=== PATIENT | female | born 1975 | race Caucasian/White ===

== ENCOUNTER 2016-10-30 07:30 | Inpatient (IN) | payer BC ==
[2016-10-27 11:44] LABS: CONDITION Y; DEFINITIVE SEE PRINTOUT; Hematocrit 42.3 % (36.0-46.0); Hemoglobin 14.2 g/dL (12.2-16.2); Mean Corpuscular Hgb Conc. 33.5 g/dL (32.0-36.0); Mean Corpuscular Volume 86.6 fL (80.0-100.0); Mean Platelet Volume 8.3 fL (7.4-10.4); Platelet Count (auto) 301 10^3/uL (140-450); Red Cell Distribution Width 16.4 % (11.6-16.0); White Blood Cell 4.7 10^3/uL (4.4-10.8)
[2016-10-27 11:47] LABS: Metamyelocytes % 0; Myelocytes % 0; Promyelocytes % 0; Reactive Lymphocytes 0
[2016-10-27 11:49] LABS: Urine Bilirubin Negative (Negative); Urine Blood Negative /uL (Negative); Urine Color Yellow (Yellow); Urine Glucose Normal (Normal); Urine Ketone Negative (Negative); Urine Mucus FEW (None Seen); Urine Nitrite Negative (Negative); Urine RBC 1 /hpf (0 - 4); Urine Squamous Epithelial Cell FEW /hpf (<5); Urine Urobilinogen Normal (Negative); Urine pH 5.5 (5.0-8.0)
[2016-10-27 12:04] LABS: BUN/Creatinine Ratio 30.2; Calcium 8.8 mg/dL (8.5-10.1); Potassium 4.3 mmol/L (3.5-5.1)
[2016-10-27 12:07] LABS: INR 0.96 (0.9-1.15); Partial Thromboplastin Time 27.8 sec (22.64-33.71); Prothrombin Time 10.5 sec (9.37-12.3)
[2016-10-27 13:17] LABS: Platelet Estimate Adequate; RBC Morphology Normal
[~2016-10-30] VITALS: Ht 170.2 cm; Wt 110.7 kg
[~2016-10-30 07:30] MED LIST: THYR60TA PO
[2016-10-30] MEDS ORDERED: LIDOCAINE W/ EPINEPHRINE 1 % INJ 30ML ONE (07:45)
[2016-10-30] MEDS ORDERED: BUPIVACAINE 0.5% P/F INJ 10 ML VIAL ONE (07:45)
[2016-10-30] MEDS ORDERED: BUPIVACAINE 0.25% INJ 50ML VIAL ONE (07:46)
[2016-10-30] MEDS ORDERED: LIDOCAINE 1% HCL (LOCAL ANESTH.) INJ 20ML MDV ONE (07:47)
[2016-10-30] MEDS ORDERED: SUCCINYLCHOLINE CHLORIDE 20 MG/ML 10ML VIAL IV ONE (07:48)
[2016-10-30] MEDS ORDERED: METOCLOPRAMIDE HCL 5MG/ml INJ 2ml VIAL ONE (07:52)
[2016-10-30] MEDS ORDERED: KETOROLAC TROMETH 60MG/2ML VIAL IM ONE (07:52)
[2016-10-30] MEDS ORDERED: GLYCOPYRROLATE 0.2 MG/ML 1ML VIAL ONE (07:52)
[2016-10-30] MEDS ORDERED: SODIUM CHLORIDE LOCK 50 ML ONE (07:52)
[2016-10-30] MEDS ORDERED: fentaNYL CITRATE 10 ML ONE (07:52)
[2016-10-30] MEDS ORDERED: MIDAZOLAM HCL 1MG/1ML-2 ML VIAL ONE (07:52)
[2016-10-30] MEDS ORDERED: ONDANSETRON HCL 4 MG/2 ML VIAL ONE (07:52)
[2016-10-30] MEDS ORDERED: NEOSTIGMINE 1 MG/ML INJ (10mg/10ML VIAL) ONE (07:52)
[2016-10-30] MEDS ORDERED: MEPERIDINE HCL (50 MG/ML) 1 ML VIAL ONE (07:52)
[2016-10-30] MEDS ORDERED: PROPOFOL 10 MG/ML 20 ML IV ONE (07:53)
[2016-10-30] MEDS ORDERED: ROCURONIUM 10MG/ML 10ML VIAL IV ONE (07:53)
[2016-10-30] MEDS ORDERED: ceFAZolin 1GM/50ML D5W 50 ML IV ONE ×2 (08:14→09:00)
[2016-10-30] MEDS: LACTATED RINGER'S 1,000 ML IV SCH ×3 (08:51→22:29)
[2016-10-30] MEDS ORDERED: LIDOCAINE HCL (LOCAL ANESTH.) 0.5 % 50ML MDV IJ ONE (08:59)
[2016-10-30] MEDS ORDERED: NITROGLYCERIN 0.4 MG SL TAB SL PRN (09:00)
[2016-10-30] MEDS ORDERED: MORPHINE SULF INJ 2 MG/ML SYRINGE 1ML IV PRN (09:00)
[2016-10-30] MEDS ORDERED: METOCLOPRAMIDE HCL 5MG/ml INJ 2ml VIAL IV ONE (10:45)
[2016-10-30] MEDS ORDERED: HYDROmorphone HCL 2 MG/ML VL IV PRN (10:45)
[2016-10-30] MEDS ORDERED: KETOROLAC TROMETH 30 MG/ML 1ML VIAL IV ONE (10:45)
[2016-10-30] MEDS: ONDANSETRON HCL 4 MG/2 ML VIAL IV PRN ×3 (10:54→18:45)
[2016-10-30 14:31] VITALS: BP 95/63
[2016-10-30 16:15] VITALS: BP 91/61
[2016-10-30] MEDS: MORPHINE SULF INJ 2 MG/ML SYRINGE 1ML IV PRN (17:14)
[2016-10-30 22:00] VITALS: BP 97/62
[2016-10-30] MEDS: ACETAMINOPHEN 500 MG TAB PO PRN (22:29)
[2016-10-31] MEDS ORDERED: SODIUM CHLORIDE 0.9% 500 ML IV ONE (00:45)
[2016-10-31 05:00] VITALS: BP 95/61
[2016-10-31] MEDS: LACTATED RINGER'S 1,000 ML IV SCH ×2 (05:19→10:09)
[2016-10-31 06:33] LABS: Basophils # (auto) 0 uL; Basophils % (auto) 0.2 % (0.0-2.0); CONDITION Y; Eosinophils # (auto) 0 uL; Hematocrit 34.2 % (36.0-46.0); Hemoglobin 11.6 g/dL (12.2-16.2); Lymphocytes # (auto) 0.8 uL; Lymphocytes % (auto) 9.2 % (10.0-50.0); Mean Corpuscular Hemoglobin 29.2 pg (28.0-32.0); Mean Corpuscular Volume 85.6 fL (80.0-100.0); Mean Platelet Volume 8.1 fL (7.4-10.4); Monocytes # (auto) 0.7 uL; Monocytes % (auto) 8.4 % (0.0-12.0); Neutrophils # (auto) 6.8 uL; Neutrophils % (auto) 82.2 % (37.0-80.0); Platelet Count (auto) 273 10^3/uL (140-450); White Blood Cell 8.3 10^3/uL (4.4-10.8)
[2016-10-31] MEDS: ACETAMINOPHEN 500 MG TAB PO PRN (06:41)
[2016-10-31 07:39] VITALS: BP 94/58
[2016-10-31] MEDS: ONDANSETRON HCL 4 MG/2 ML VIAL IV PRN ×2 (10:33→16:44)
[2016-10-31] MEDS: MORPHINE SULF INJ 2 MG/ML SYRINGE 1ML IV PRN ×2 (10:33→16:43)
[2016-10-31 11:51] VITALS: BP 99/65
[2016-10-31 16:47] VITALS: BP 110/71
[2016-10-31 18:07] VITALS: BP 110/71
== END 2016-10-31 18:53 | disposition home or self-care (01) | DRG 743 ==
LOC: SUR 07:30 → TELE-E-ADS 07:31 → EAST 14:30
PROVIDERS: ADMIT Obstetrics & Gynecology; ATTEND Obstetrics & Gynecology
PROC: 0UT5FZZ Resection of Right Fallopian Tube, Via Natural or Artificial Opening With Percutaneous Endoscopic Assistance (ICD-10-PCS; 2016-10-30)
PROC: 8E0W4CZ Robotic Assisted Procedure of Trunk Region, Percutaneous Endoscopic Approach (ICD-10-PCS; 2016-10-30)
PROC: 0UT9FZZ Resection of Uterus, Via Natural or Artificial Opening With Percutaneous Endoscopic Assistance (ICD-10-PCS; principal; 2016-10-30 08:21)
DX: D25.0 Submucous leiomyoma of uterus (principal); N81.4 Uterovaginal prolapse, unspecified; N92.5 Other specified irregular menstruation; Z90.721 Acquired absence of ovaries, unilateral; Z90.79 Acquired absence of other genital organ(s)
CPT/HCPCS: 36415; 80048; 81001; 84702; 85007; 85025; 85027; 85610; 85730; 86850; 86900; 86901; 87086; J0330; J0690; J1885; J2001; J2250; J2405; J2704; J3490